=== PATIENT | female | born 1965 | race Caucasian/White ===

== ENCOUNTER → 2017-06-12 | Day surgery (SDC) | payer BC | LOC: MSO 08:40 | DX: Z12.11 Encounter for screening for malignant neoplasm of colon (principal); D12.3 Benign neoplasm of transverse colon; Z87.891 Personal history of nicotine dependence | CPT/HCPCS: 00810; J3010; J7120 ==

== ENCOUNTER → 2023-02-27 | Day surgery (SDC) | payer BC | END | disposition home or self-care (01) | LOC: MSO 08:48 | DX: Z12.11 Encounter for screening for malignant neoplasm of colon (principal); Z86.010 Personal history of colon polyps; Z86.16 Personal history of COVID-19 | CPT/HCPCS: 00812; J2704; J3010; J7120 ==